=== PATIENT | female | born 1940 | race Caucasian/White ===

== ENCOUNTER 2022-11-19 19:25 | Observation (INO) | payer MEDICARE, OTHER ==
[~2022-11-19] VITALS: Ht 160 cm; Wt 87.0 kg
--- OUTSIDE RECORDS SUMMARY | ~2022-11-19 | XMS | Continuity of Care Document ---
Demographics + + + | Address | [address] | | | [place] [address] | + + + | Preferred Language | Unknown | + + + | Marital Status | | + + + | Faith Affiliation | Unknown | + + + | Race | White | + + + | Ethnic Group | Unknown | + + + Author + + + | Author | [facility] | + + + | Organization | [facility] | + + + | Address | [address] | | | [place] [address] | + + + | Phone | | + + + Care Team Providers + + + + | Care Puppy Trainer Name | Role | Phone | + + + + Unavailable | Unavailable | + + + + Allergies No information. Encounters No information. Functional Status No information. Immunizations No information. Medications No information. 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, LUMBOSACRA | | + + + + | 2022-09-23 11:52 | LOW BACK PAIN, UNSPECIFIED | [facility] | | | | | + + + + | 2022-09-23 11:52 | OTH DISRD OF BONE DENSITY | [facility] | | | AND STRUCTURE, UNSPECIFI | | + + + + | 2022-09-23 11:52 | PLEURODYNIA | [facility] | + + + + | 2022-09-23 11:52 | ENCNTR FOR GENERAL ADULT | [facility] | | | MEDICAL EXAM W/O ABNORMAL | | | | FINDINGS | | + + + + | 2022-09-23 11:52 | ENCNTR SCREEN MAMMOGRAM | [facility] | | | FOR MALIGNANT NE | | + + + + | 2022-09-23 11:52 | ENCOUNTER FOR SCREENING | [facility] | | | FOR OSTEOPOROSIS | | + + + + | 2022-09-23 11:52 | LONG-TERM (CURRENT) USE OF | [facility] | | | BISPHOSPHONAT | | + + + + | 2022-09-24 10:30 | ENCNTR SCREEN MAMMOGRAM | [facility] | | | FOR MALIGNANT NE | | + + + + Procedures No information. Results/Labs No information. Social History No information. Vital Signs No information."
--- NOTE | 2022-11-19 21:55 | EKG ---
[facility] [address] [facility] [place] [address] Signed Normal sinus rhythm Cannot rule out Inferior infarct , age undetermined Possible Anterolateral infarct , age undetermined Abnormal ECG No previous ECGs available Confirmed by Tyron Hamilton MD () on 11/19/2022 9:55:24 PM Electronically Signed By: TYRON HAMILTON MD 11/19/22 [id number] PATIENT NAME: TING RIDLEY Electrocardiogram DATE OF : 38 PHYSICIAN: TYRON HAMILTON MD REPORT #: [id number] REPORT IS CONFIDENTIAL AND NOT TO BE RELEASED WITHOUT AUTHORIZATION
[2022-11-19 23:34] VITALS: BP 153/53
--- NOTE | 2022-11-20 00:31 | NUR ---
PLACED CALL TO MD WITH CONCENR OF NO IV FLUIDS. RECEIVED ORDER FOR MAINT IV FLUIDS. VERIFIED ORDER USING THE READBAK METHOD.
[2022-11-20 01:01] VITALS: BP 138/72
--- NOTE | 2022-11-20 01:10 | NUR ---
PATIENT HAD BOUT OF EMESIS. PATIENT GIVEN PRN NAUSEA MEDICATION PER ORDER. PATIENT PROVIDED WITH COOL WASH RAG FOR FACE. IV FLUIDS INFUSING PER ORDER. PATIENT DENIES ANY FURTHER NEEDS. CALL LIGHT IN REACH. PATIENT PLACED ON 2L VIA NC. PATIENT DENIES ANY SOB. NO FURTHER NEEDS NOTED. CALL LIGHT IN REACH.
--- NOTE | 2022-11-20 02:11 | NUR ---
PATIENT IS RESTING IN BED WITH EYES CLOSED, RR 18. CPOX READINGS ARE WNL. CALL LIGHT IN REACH. BED ALARM ON FOR SAFETY.
--- NOTE | 2022-11-20 04:21 | NUR ---
PATIENT IS RESTING IN BED WITH EYES CLOSED, CPOX READINGS ARE WNL. CALL LIGHT IN REACH.
[2022-11-20 05:00] VITALS: BP 142/68
--- NOTE | 2022-11-20 05:57 | NUR ---
PATIENT ASSISTED TO THE BSC A 1PA. PATIENT INCONT OF URINE AND ABLE TO VOID. PATIENT IS BACK IN BED RESTING. PATIENT DENIES BEING DIZZY OR LIGHT HEADED. PATIENT ONLY REPORTS WEAKNESS. PATIENT DENIES ANY NAUSEA. PATIENT PROVIDED WITH TEA AND ICE CHIPS. PATIENT DENIES ANY FURTHER NEEDS. CALL LIGHT IN REACH.
--- NOTE | 2022-11-20 07:20 | NUR ---
BEDSIDE HANDOFF REPORT RECEIVED FROM PSYCHOLOGIST [employer] RN. PT RESTING IN BED. PT ALERT AND ORIENTED. GRANDSON ARRIVED TO ROOM, ALL QUESTIONS ANSWERED. PT DENIES NEEDS AT THIS TIME.
--- NOTE | 2022-11-20 08:20 | NUR ---
PT RESTING IN BED, GRANANDRES AT BEDSIDE. PT ALERT AND ORIENTED. PT ON ROOM AIR, LUNG SOUNDS CLEAR. PT DENIES NAUSEA, BREAKFAST TRAY DELIVERED. IV FLUIDS INFUSING LR AT 100ML/HR. PT WITH MILD LEFT SIDED WEAKNESS, PT STATES AT BASELINE, CMS OTHERWISE INTACT, WITHOUT EDEMA. PT VOICING DESIRE TO DC TODAY, DISCUSSED PLAN OF CARE/PT/OT AND DR. HAMILTON WILL EVALUATE HER THIS AM. PT DENIES OTHER NEEDS AT THIS TIME.
--- NOTE | 2022-11-20 08:33 | NUR ---
PT VISITING IN ROOM WITH GRANDSON, NOTHING ELSE TO REPORT AT THIS TIME
--- NOTE | 2022-11-20 09:25 | NUR ---
OT AT BEDSIDE. PT GIVEN MRI SCREENING FORM, HER AND HER GRANDSON WILL FILL IT OUT.
--- NOTE | 2022-11-20 09:57 | NUR ---
PT TO MRI.
[2022-11-20] MEDS ORDERED: LISINOPRIL-HCT1 EAC1 PO (10:35)
[2022-11-20] MEDS ORDERED: ALENDRONATE SOD70 MG PO (10:36)
[2022-11-20] MEDS ORDERED: VITAMIN D325 MC4 PO (10:39)
[2022-11-20 10:43] VITALS: BP 122/52
--- NOTE | 2022-11-20 11:58 | NUR ---
PT GIVEN 650MG TYELNOL FOR COMPLAINT OF HEADACHE 09/11. PT UPDATED ON ECHO. PT DENIES OTHER NEEDS AT THIS TIME.
[2022-11-20] MEDS ORDERED: ASPIRIN81 MG PO (13:18)
[2022-11-20] MEDS ORDERED: PLAVIX75 MG PO (13:19)
[2022-11-20] MEDS ORDERED: CRESTOR40 MG NG (13:20)
--- NOTE | 2022-11-20 13:25 | NUR ---
SPOKE TO PATIENT ABOUT THE DISCHAARGE PLAN.PATIENT PLANS TO GO HOME TO HER HOUSE WHERE SHE LIVES ALONE. PATIENT WILL CALL HER DAUGHTER OR GRANDSON WHO LIVE IN [place] IF SEE NEEDS HELP. HOME HEALTH WILL ALSO BE ORDERED FOR THE PATIENT. PATIENT CAN DO HER OWN ADLS AND THE PATIENT STILL DRIVES HER OWN CAR. [facility] SHE DOES NOT [facility] LE[facility].PATIENT DOES HAVE A WALKER BUT STATES SHE WILL NOT USE IT. PATIENT SYMPTOMS HAVE IMPROVE GREATLY. A FAMILY RESOURCE BROCHURE WAS GIVEN TO THE FAMILY TO HELP SET-UP HOUSEKEEPING AND MEALS. PATIENT'S DEMOGRAPHICS IN THE MEDICAL RECORD ARE CORRECT.PATIENT WILL BE DISCHARGED HOME.
--- NOTE | 2022-11-20 13:44 | NUR ---
PT IN BED. GRANDSON IN CHAIR FACING. BOTH DENIED NEEDS. CONSENTED TO PRAYER. PRAYED.
[2022-11-20] MEDS ORDERED: CRESTOR40 MG PO (13:47)
--- NOTE | 2022-11-20 13:59 | NUR ---
IV X2 REMOEV FOR DISCHARGE. PT INSTRUCTED TO WATCH FOR S/S PHLEBITIS. PT GETTING DRESSED, FAMILY IN ROOM.
[2022-11-20 14:44] VITALS: BP 136/65
== END 2022-11-20 14:45 | disposition home or self-care (01) ==
LOC: ED 19:25 → MS 19:26
PROVIDERS: ADMIT Family Medicine; ATTEND Family Medicine
DX: I63.9 Cerebral infarction, unspecified (principal); E87.6 Hypokalemia; I10 Essential (primary) hypertension; Z66 Do not resuscitate; Z98.84 Bariatric surgery status
CPT/HCPCS: 36415; 70450; 70496; 70498; 70551; 71045; 71260; 80048; 80053; 80061; 81001; 83036; 83735; 84484; 85025; 85379; 85610; 85730; 93005; 93010; 93306; 97161; 97165; A9270; J2405; J3480; J7121; Q9967